=== PATIENT | male | born 1990 | race Caucasian/White ===

== ENCOUNTER 2024-01-13 18:51 | Emergency (ER) | payer BC | END 2024-01-13 21:33 | disposition home or self-care (01) | LOC: ERS 18:51 | DX: F41.0 Panic disorder [episodic paroxysmal anxiety] (principal); F17.290 Nicotine dependence, other tobacco product, uncomplicated | CPT/HCPCS: 93005; 99283 ==

== ENCOUNTER 2025-02-10 22:12 | Observation (INO) | payer OTHER ==
[2025-02-10 22:38] LABS: #Basophils 0.04 10x3/uL (0.0-0.2); #Eosinophils 0.44 10x3/uL (0.0-0.7); #Monocytes 0.42 10x3/uL (0.11-0.59); #Neutrophils 3.93 10x3/uL (1.40-6.50); %Basophils 0.5 % (0.0-1.0); %Eosinophils 5.2 % (0.0-10.0); %Lymphocytes 42.4 % (21.0-51.0); %Monocytes 5.0 % (0.0-10.0); %Neutrophils 46.7 % (42.0-75.0); Hematocrit 38.1 % (42.0-52.0); Hemoglobin 12.7 g/dL (14.0-18.0); Mean Corpuscular Hemoglobin 28.0 pg (27.0-31.0); Mean Corpuscular Volume 84.1 fL (78.0-98.0); Platelet Count 202 10x3/uL (130-400); Red Blood Cell (RBC) Count 4.53 mill/uL (4.70-6.10); White Blood Cell (WBC) Count 8.42 10x3/uL (4.8-10.8)
[2025-02-10 22:56] LABS: Magnesium 2.1 mg/dL (1.6-2.6)
[2025-02-10 22:57] LABS: Acetaminophen Less than 10 mcg/mL (Less than 10); Salicylate Less than 8.0 mg/dL (Less than 8.0)
[2025-02-10 22:58] LABS: ALT (SGPT) 121 U/L (Less than 45); AST (SGOT) 77 U/L (11-34); Albumin 4.4 g/dL (3.1-4.5); Alkaline Phosphatase 91 U/L (40-110); Anion Gap 12 mmol/L (10-20); BUN (Urea Nitrogen) 7 mg/dL (8.9-20.6); Bilirubin, Total 0.4 mg/dL (0.3-1.2); Calc. Creatinine Clearance 0 mL/min (70-130); Calcium 8.9 mg/dL (7.8-10.44); Carbon Dioxide 26 mmol/L (22-29); Chloride 102 mmol/L (98-107); Globulin 2.7 g/dL (2.4-3.5); Glucose 156 mg/dL (70-105); Potassium 3.7 mmol/L (3.5-5.1); Sodium 136 mmol/L (136-145)
[2025-02-11] MEDS ORDERED: Senokot S 8.6-50 MG TAB PO PRN (01:13)
[2025-02-11] MEDS ORDERED: Glucagon 1 MG/ML KIT IM PRN (01:13)
[2025-02-11] MEDS ORDERED: Dextrose 50% Abboject 50 ML SYRINGE SLOW IVP PRN (01:13)
[2025-02-11] MEDS ORDERED: Ondansetron PF 4 MG/2 ML Vial IVP PRN (01:13)
[2025-02-11] MEDS ORDERED: Calcium Carbonate 500 MG ChewTAB PO PRN (01:13)
[2025-02-11 01:57] LABS: Cocaine Metabolite Screen Negative (Negative); THC/Cannabinoid Screen Negative (Negative); Tricyclic Screen Negative (Negative)
[2025-02-11 05:43] LABS: Acetaminophen Less than 10 mcg/mL (Less than 10); Salicylate Less than 8.0 mg/dL (Less than 8.0)
[2025-02-11 05:44] LABS: ALT (SGPT) 119 U/L (Less than 45); AST (SGOT) 84 U/L (11-34); Acetaminophen Less than 10 mcg/mL (Less than 10); Albumin 3.8 g/dL (3.1-4.5); Alkaline Phosphatase 85 U/L (40-110); Anion Gap 12 mmol/L (10-20); BUN (Urea Nitrogen) 7 mg/dL (8.9-20.6); Bilirubin, Total 0.3 mg/dL (0.3-1.2); CK (CPK) 221 U/L (30-200); Calc. Creatinine Clearance 0 mL/min (70-130); Calcium 8.2 mg/dL (7.8-10.44); Carbon Dioxide 22 mmol/L (22-29); Chloride 112 mmol/L (98-107); Globulin 2.5 g/dL (2.4-3.5); Glucose 134 mg/dL (70-105); Magnesium 2.0 mg/dL (1.6-2.6); Potassium 4.3 mmol/L (3.5-5.1); Sodium 142 mmol/L (136-145)
[2025-02-11] MEDS ORDERED: FENOFIBRATE MICRONIZED 200 MG PO SCH (09:00)
[2025-02-11] MEDS: Apixaban 5 MG TAB PO SCH (09:45)
[2025-02-11] MEDS: Folic Acid 1 MG TAB PO SCH (09:46)
[2025-02-11] MEDS: Pantoprazole 40 MG DR.TAB PO SCH (09:46)
[2025-02-11] MEDS: Multivit, Therapeutic 1 TAB PO SCH (09:46)
[2025-02-11] MEDS: Ezetimibe 10 MG TAB PO SCH (09:46)
[2025-02-11 16:09] VITALS: BP 122/62; TEMP 97.9
[2025-02-11] MEDS: FLU (Fluarix Triv) 25-26 (6MOS UP)/PF 45 MCG/0.5 ML Syringe IM ONE (17:55)
[2025-02-11] MEDS ORDERED: Insulin Glargine 30 UNITS/0.3 ML VIAL SC SCH (21:00)
== END 2025-02-11 17:50 | disposition home or self-care (01) ==
LOC: ERS 22:12 → PCU 02-11 01:13
PROVIDERS: ADMIT Student in an Organized Health Care Education/Training Program; ATTEND Internal Medicine
DX: T40.2X2A Poisoning by other opioids, intentional self-harm, initial encounter (principal); R74.01 Elevation of levels of liver transaminase levels; I81 Portal vein thrombosis; E11.9 Type 2 diabetes mellitus without complications; E78.1 Pure hyperglyceridemia; F41.9 Anxiety disorder, unspecified; F33.9 Major depressive disorder, recurrent, unspecified; F10.929 Alcohol use, unspecified with intoxication, unspecified; Y90.6 Blood alcohol level of 120-199 mg/100 ml; Z88.5 Allergy status to narcotic agent; Z79.4 Long term (current) use of insulin; Z79.899 Other long term (current) drug therapy
CPT/HCPCS: 36415; 36416; 80053; 80143; 80306; 80307; 82550; 83735; 84100; 84443; 85025; 93005; 96374; 96375; 96376; G0378; J2310; J3411; J7030